=== PATIENT | female | born 1945 | race Caucasian/White ===

== ENCOUNTER 2016-11-22 19:54 | Emergency (ER) | payer MEDICARE, BC ==
[2016-11-22 20:03] VITALS: BP 122/78
[2016-11-22] MEDS ORDERED: Mupirocin 2% OINT* TUBE TOPICAL ONE (20:13)
--- NOTE | 2016-11-22 20:30 | UC ---
Abhay Ortez Benjamin, scribed for Miguel Mckenna MD on 11/22/16 at 2020 . Hand/Wrist HPI - HPI Summary HPI Summary: 71yo female presents with left 3rd and 4th finger injury from burning and pulling off some of her skin off while trying to catch a dog leash this morning. Pt reports throbbing pain in the 3rd and 4th fingers, with fluid filled blisters, and swelling. Fingers hurt to move but pt denies any freddie injury. ROM of the fingers is still intact. Last tetanus shot unknown. - History Of Current Complaint Chief Complaint: UCUpperExtremity Stated Complaint: INJURY TO 2 FINGERS Time Seen by Provider: 11/22/16 20:05 Hx Obtained From: Patient Onset/Duration: Sudden Onset, Lasting Hours, Still Present Severity Initially: Moderate Severity Currently: Severe Pain Scale Used: 0-10 Numeric Character Of Pain: Throbbing Aggravating Factor(s): Movement Alleviating: Rest, Ice, Compression Associated Signs And Symptoms: Positive: Swelling - Allergies/Home Medications Allergies/Adverse Reactions: Allergies Allergy/AdvReac Type Severity Reaction Status Date / Time No Known Allergies Allergy Verified 11/22/16 20:03 Home Medications: Home Medications Levothyroxine TAB* [Synthroid TAB*] 1 tab PO DAILY 11/22/16 [History Confirmed 11/22/16] PMH/Surg Hx/FS Hx/Imm Hx Endocrine History: Other - thyroid disease Other Endocrine History: . - Surgical History Surgical History: Yes Surgery Procedure, Year, and Place: left shoulder, cyst - Family History Known Family History: Negative: Cardiac Disease, Hypertension - Social History Occupation: Employed Full-time Lives: With Family Alcohol Use: Occasionally Substance Use Type: None Smoking Status (MU): Never Smoked Tobacco - Immunization History Most Recent Tetanus Shot: unknown Review of Systems Constitutional: Negative Skin: Other - Blisters on 3rd and 4th fingers of the left hand Eyes: Negative ENT: Negative Respiratory: Negative Cardiovascular: Negative Gastrointestinal: Negative Genitourinary: Negative Motor: Negative Neurovascular: Negative Musculoskeletal: Negative Neurological: Negative Psychological: Negative All Other Systems Reviewed And Are Negative: Yes Physical Exam Triage Information Reviewed: Yes Appearance: Well-Appearing, No Pain Distress, Well-Nourished Vital Signs: Initial Vital Signs Temp 98.7 F 11/22/16 19:58 Pulse 61 11/22/16 19:58 Resp 18 11/22/16 19:58 BP 122/78 11/22/16 19:58 Pulse Ox 99 11/22/16 19:58 Vital Signs Reviewed: Yes Eyes: Positive: Conjunctiva Clear ENT: Positive: Normal ENT inspection, Hearing grossly normal Neck: Positive: Supple, Nontender Respiratory: Positive: Lungs clear, Normal breath sounds, No respiratory distress Cardiovascular: Positive: RRR, No Murmur, Pulses Normal, Brisk Capillary Refill Abdomen Description: Positive: Nontender, Soft Musculoskeletal: Positive: Strength Intact, ROM Intact, Other: - Broken 2x2cm blister at left 3rd proximal phalange, 1x1cm blister at left 3rd middle phalange , 0.5x0.5cm blister at left 4th proximal phalange, and 1x0.5cm blister atleft middle phalange, all at the palmar surface. Clear fluid from the blister, no pus. Full ROM intact. Neurological: Positive: Alert, Muscle Tone Normal Psychological: Positive: Age Appropriate Behavior Skin: Positive: Other - Broken 2x2cm blister at left 3rd proximal phalange, 1x1cm blister at left 3rd middle phalange, 0.5x0.5cm blister at left 4th proximal phalange, and 1x0.5cm blister atleft middle phalange all at the palmar surface. Clear fluid from the blister, no pus. Full ROM intact.. Negative: rashes Hand/Wrist Course/Dx - Course Course Of Treatment: Reviewed pts medication and allergy lists. Blood pressure noted. - Differential Dx/Diagnosis Provider Diagnoses: BLISTERS ON LEFT 3RD/4TH FINGERS AND SPRAIN OF LEFT 3RD/4TH FINGERS. Discharge - Discharge Plan Condition: Stable Disposition: HOME Patient Education Materials: Finger Sprain (ED), Blister (ED) Referrals: Giselle Goldstein MD [Primary Care Provider] - Additional Instructions: FOLLOW UP WITH YOUR DOCTOR. GET RECHECKED FOR ANY WORSENING OF YOUR CONDITION; SIGNS OF INFECTION OR QUESTIONS OR CONCERNS. The documentation as recorded by the Abhay nicole Benjamin accurately reflects the service I personally performed and the decisions made by me, Miguel Mckenna MD.
== END 2016-11-22 20:30 | disposition home or self-care (01) ==
LOC: UCEAST 19:54
DX: S60.423A Blister (nonthermal) of left middle finger, initial encounter (principal); S60.425A Blister (nonthermal) of left ring finger, initial encounter; S63.613A Unspecified sprain of left middle finger, initial encounter; S63.615A Unspecified sprain of left ring finger, initial encounter; X58.XXXA Exposure to other specified factors, initial encounter; Y93.9 Activity, unspecified; Y92.9 Unspecified place or not applicable; E07.9 Disorder of thyroid, unspecified
CPT/HCPCS: 99202; G0463

== ENCOUNTER 2018-07-10 10:47 | Emergency (ER) | payer MEDICARE, BC ==
[2018-07-10 11:01] VITALS: BP 129/56
--- NOTE | 2018-07-10 11:24 | UC ---
Hand/Wrist HPI - HPI Summary HPI Summary: 72 y/o female presents to the urgent care c/o RT index finger laceration s/p injury w/ a door yesterday afternoon. Pt reports her dog slammed the door and her index finger was caught in when the door closed. She irrigated laceration w / a lot of water. This morning when she woke up bleeding was active . She had to applied a lot of pressure to stop the bleeding. She doesn't take any ASA or blood thinner. She can move finger w/o any problem. Pain at touch is 5/10 associated w/ mild bruising and swelling. Pt can't recall when was the last tetanus vaccine. Pt denies numbness or tingling sensation over the RT index finger of RT hand, fever, SOB, chest pain, abdominal pain, N/V/D. - History Of Current Complaint Chief Complaint: UCUpperExtremity Stated Complaint: RT INDEX FINGER INJURY Time Seen by Provider: 07/10/18 11:10 Hx Obtained From: Patient ?: No - Menopausal Onset/Duration: Sudden Onset, Lasting Hours - 14 hrs, Still Present Severity Initially: Moderate Severity Currently: Mild Pain Intensity: 2 Pain Scale Used: 0-10 Numeric Character Of Pain: Sharp Aggravating Factor(s): Movement, Flexion, Pulling Alleviating Factor(s): Rest, Ice Associated Signs And Symptoms: Positive: Swelling, Redness, Bruising. Negative : Numbness/Tingling Related History: Dominant Hand Right - Allergies/Home Medications Allergies/Adverse Reactions: Allergies Allergy/AdvReac Type Severity Reaction Status Date / Time No Known Allergies Allergy Verified 07/10/18 11:00 PMH/Surg Hx/FS Hx/Imm Hx Previously Healthy: Yes Endocrine History: Hypothyroidism - Surgical History Surgical History: Yes Surgery Procedure, Year, and Place: left shoulder, cyst - Family History Known Family History: Positive: None - Pt denies FMHX Negative: Cardiac Disease, Hypertension - Social History Occupation: Retired Lives: With Family Alcohol Use: Occasionally Substance Use Type: None Smoking Status (MU): Never Smoked Tobacco - Immunization History Most Recent Tetanus Shot: unknown Review of Systems All Other Systems Reviewed And Are Negative: Yes Constitutional: Positive: Negative Skin: Positive: Bruising - RT index finger laceration w/ a door Eyes: Positive: Negative ENT: Positive: Negative Respiratory: Positive: Negative Cardiovascular: Positive: Negative Gastrointestinal: Positive: Negative Genitourinary: Positive: Negative Motor: Positive: Negative Neurovascular: Positive: Negative Musculoskeletal: Positive: Decreased ROM - RT index finger, Other: - RT index finger pain s/p injury w/ a door Neurological: Positive: Negative Psychological: Positive: Negative Is Patient Immunocompromised?: No Physical Exam - Summary Physical Exam Summary: Vital Signs Reviewed: Yes General: well developed, well nourished female sitting in the examining table w/ o any apparent distress Eye Exam: Normal Eyes: Positive: Conjunctiva Clear - PERRLA, EOMI, fundi grossly normal ENT: Positive: Normal ENT inspection, Hearing grossly normal, Pharynx normal, TMs normal Neck: Positive: Supple, Nontender, No Lymphadenopathy Respiratory: Positive: Chest non-tender, Lungs clear, Normal breath sounds, No respiratory distress Cardiovascular: Positive: RRR, No Murmur, Pulses Normal, Brisk Capillary Refill Abdomen Description: Positive: Nontender, No Organomegaly, Soft. Negative: CVA Tenderness (R), CVA Tenderness (L) Bowel Sounds: Positive: Present Musculoskeletal: Positive: Strength Intact, ROM Intact, No Edema Neurological: Positive: Alert, Muscle Tone Normal Psychological Exam: Normal Skin: Positive:Dorsal side of the RT index with a semilunar superficial laceration about 1.5cm in size, mild bleeding, no foreign body observed. mild tenderness to palpation, mild ecchymosis around finger. FROM of RT index finger and hand, sensation intact, capillary refill brisk, and pulses WNL. Triage Information Reviewed: Yes Vital Signs: Initial Vital Signs Temp 97.4 F 07/10/18 10:55 Pulse 59 07/10/18 10:55 Resp 18 07/10/18 10:55 BP 129/56 07/10/18 10:55 Pulse Ox 99 07/10/18 10:55 Procedures - Laceration/Wound Repair 1 Location: upper extremity - RT index finger Description: Linear - semilunar Anesthesia: 1.0% - digital block Length, Depth and Shape: 1.5cm in size Betadine Prep?: Yes Laceration/Wound Explored: clean, no foreign body removed Closure: Single Layer Suture Type: Nylon - 5.0 Number of Sutures: 6 Layer Closure?: Yes Sterile Dressing Applied?: Yes Hand/Wrist Course/Dx - Course Course Of Treatment: 72 y/o female presents to the urgent care c/o RT index finger laceration s/p injury w/ a door yesterday afternoon. Pt reports her dog slammed the door and her index finger was caught in when the door closed. She irrigated laceration w / a lot of water. This morning when she woke up bleeding was active . She had to applied a lot of pressure to stop the bleeding. She doesn't take any ASA or blood thinner. She can move finger w/o any problem. Pain at touch is 5/10 associated w/ mild bruising and swelling. Pt can't recall when was the last tetanus vaccine. Pt denies numbness or tingling sensation over the RT index finger of RT hand, fever, SOB, chest pain, abdominal pain, N/V/D. Hx obtained. Pt w/ Dorsal side of the RT index with a semilunar superficial laceration about 1.5cm in size, mild bleeding, no foreign body observed. mild tenderness to palpation, mild ecchymosis around finger. FROM of RT index finger and hand, RT index finger X-ray ordered, Impression: Soft tissue swelling greatest over the radial and dorsal aspects. No conspicuous foreign body evident. Negative for fracture or malalignment. 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 LACERATION PROCEDURE NOTE: . Copious irrigation was done with saline by the nurse and the wound explored. There was no FB or deep structure injury noted. FROM of left forearm. procedure was explained and consent obtained, Timeout performed. The wound was anesthetized with 2 mL of 1 % lido with good anesthesia by digital block. Sterile drape and prep were done. There were 6 sutures with 5.0 nylon type of suture. The length of the wound after closure was 1.5cm. No debridement done. Pt tolerated the procedure well without adverse effects. Neurovascular intact and FROM of Rt index finger. Tdap ordered and applied by nurse. Pt advised to f/u suture removal in 10-12 days and if any signs of infection develop to immediately return to the urgent care of PCP for further management and treatment. Pt understood and agreed and left the clinic ambulating A&Ox3. - Differential Dx/Diagnosis Differential Diagnosis/HQI/PQRI: Abrasion, Cellulitis, Contusion, Fracture, Infection, Puncture Wound, Sprain, Strain, Tendonitis, Tenosynovitis, Other - laceration Provider Diagnosis: Laceration of right index finger Discharge - Sign-Out/Discharge Documenting (check all that apply): Patient Departure - D/C home All imaging exams completed and their final reports reviewed: Yes - Discharge Plan Condition: Stable Disposition: HOME Patient Education Materials: Care For Your Stitches (ED), Laceration (ED) Referrals: Giselle Goldstein MD [Primary Care Provider] - 2 Weeks Additional Instructions: 1-Please apply topical antibiotic over the wound. Keep wound clean and dry 2- F/u suture removal in 10-12 days w/ your PCP or here at the urgent care. 3-Take Ibuprofen or Tylenol PO q6-8hrs prn for pain or swelling. 4- If you develop fever or redness around your finger despite apply triple antibiotic please return to the Urgent care for further evaluation and treatment - Billing Disposition and Condition Condition: STABLE Disposition: Home
[2018-07-10] MEDS ORDERED: Lidocaine 1%* 5 ML VIAL INJ ONE (11:34)
[2018-07-10] MEDS ORDERED: Tetan/Diph/Pertus SYR(Tdap)* 0.5 ML SYR(BOOSTRIX) use SYR IM ONE (11:35)
== END 2018-07-10 12:48 | disposition home or self-care (01) ==
LOC: UCEAST 10:47
DX: S61.210A Laceration without foreign body of right index finger without damage to nail, initial encounter (principal); W23.0XXA Caught, crushed, jammed, or pinched between moving objects, initial encounter; M18.9 Osteoarthritis of first carpometacarpal joint, unspecified; E03.9 Hypothyroidism, unspecified
CPT/HCPCS: 73140; 90471; 90715; 99211; G0463

== ENCOUNTER 2018-07-21 12:19 | Emergency (ER) | payer BC, MEDICARE ==
[2018-07-21 12:43] VITALS: BP 111/60
--- NOTE | 2018-07-21 13:03 | UC ---
HPI Wound/Suture Re-check - HPI Summary HPI Summary: 72 y/o female presents to the urgent care for suture removal from RT index finger laceration repair done on 07/10/2018 here at the clinic. 6 sutures were placed. - History Of Current Complaint Chief Complaint: UCLaceration Stated Complaint: SUTURE REMOVAL Time Seen by Provider: 07/21/18 13:01 Hx Obtained From: Patient Pain Intensity: 0 - Allergies/Home Medications Allergies/Adverse Reactions: Allergies Allergy/AdvReac Type Severity Reaction Status Date / Time No Known Allergies Allergy Verified 07/10/18 11:00 PMH/Surg Hx/FS Hx/Imm Hx - Surgical History Surgical History: Yes Surgery Procedure, Year, and Place: left shoulder, cyst - Family History Known Family History: Positive: None - Pt denies FMHX Negative: Cardiac Disease, Hypertension - Social History Alcohol Use: Occasionally Substance Use Type: None Smoking Status (MU): Never Smoked Tobacco - Immunization History Most Recent Tetanus Shot: unknown Physical Exam Vital Signs: Initial Vital Signs Temp 98.5 F 07/21/18 12:41 Pulse 60 07/21/18 12:41 Resp 17 07/21/18 12:41 BP 111/60 07/21/18 12:41 Pulse Ox 99 07/21/18 12:41 Course/Dx - Differential Dx - Laceration/Wound Differential Diagnoses: Cellulitis, Dehiscence, Healing Wound, Suture Removal - Diagnosis Provider Diagnosis: Visit for suture removal Discharge - Sign-Out/Discharge Documenting (check all that apply): Patient Departure - d/c home All imaging exams completed and their final reports reviewed: No Studies - Discharge Plan Condition: Stable Disposition: HOME Patient Education Materials: Acute Wound Care (ED) Referrals: Giselle Goldstein MD [Primary Care Provider] - If Needed Additional Instructions: 1-Please continue applying topical antibiotic over the wound for 2-3 days. Keep wound clean and dry 3- If you develop fever or redness return to the Urgent care or f/u w/ your PCP for further management. - Billing Disposition and Condition Condition: STABLE Disposition: Home
== END 2018-07-21 13:17 | disposition home or self-care (01) ==
LOC: UCEAST 12:19
DX: S61.210D Laceration without foreign body of right index finger without damage to nail, subsequent encounter (principal); W45.8XXD Other foreign body or object entering through skin, subsequent encounter

== ENCOUNTER 2018-08-11 20:33 | Emergency (ER) | payer BC, MEDICARE ==
[2018-08-11 20:47] VITALS: BP 124/63
--- NOTE | 2018-08-11 20:52 | UC ---
Hand/Wrist HPI - HPI Summary HPI Summary: 72 year old female with no PMH presents after jamming L 4th finger while playing with dog, unsure if jammed on ball, dog, or ground. Pain with flexion of Left 4th finger, + swelling, redness. No pain at rest, no prior injuries. No blood thinners, no open wounds, sensation intact. occurred at 3:30pm - History Of Current Complaint Chief Complaint: UCUpperExtremity Stated Complaint: FINGER INJURY Time Seen by Provider: 08/11/18 20:48 Hx Obtained From: Patient, Family/[employer] - Hx Last Menstrual Period: post ?: No Onset/Duration: Sudden Onset, Lasting Hours, Still Present Severity Initially: Moderate Severity Currently: Moderate Pain Intensity: 4 Pain Scale Used: 0-10 Numeric Character Of Pain: Sharp - with movement, Aching Aggravating Factor(s): Flexion, Extension Alleviating Factor(s): Rest Associated Signs And Symptoms: Positive: Swelling, Redness - Allergies/Home Medications Allergies/Adverse Reactions: Allergies Allergy/AdvReac Type Severity Reaction Status Date / Time No Known Allergies Allergy Verified 08/11/18 20:47 PMH/Surg Hx/FS Hx/Imm Hx Previously Healthy: Yes - Surgical History Surgical History: Yes Surgery Procedure, Year, and Place: left shoulder, cyst - Family History Known Family History: Positive: None - Pt denies FMHX Negative: Cardiac Disease, Hypertension - Social History Alcohol Use: Occasionally Substance Use Type: None Smoking Status (MU): Never Smoked Tobacco - Immunization History Most Recent Tetanus Shot: unknown Review of Systems All Other Systems Reviewed And Are Negative: Yes Constitutional: Positive: Negative Skin: Positive: Bruising Motor: Positive: Decreased ROM Musculoskeletal: Positive: Arthralgia, Edema, Myalgia Is Patient Immunocompromised?: No Physical Exam Triage Information Reviewed: Yes Appearance: Well-Appearing, No Pain Distress, Well-Nourished Vital Signs: Initial Vital Signs Temp 98.4 F 08/11/18 20:40 Pulse 68 08/11/18 20:40 Resp 16 08/11/18 20:40 BP 124/63 08/11/18 20:40 Pulse Ox 97 08/11/18 20:40 Vital Signs Reviewed: Yes Eyes: Positive: Conjunctiva Clear Musculoskeletal: Positive: Strength Limited @ - unable to extend L 4th DIP against resistence, PROM full. full ROM, strength of all other fingers, wrist. radial/ ulnar pulses 2+ car refill < 2secs. SITLT Neurological: Positive: Alert Psychological Exam: Normal Skin: Positive: Rashes Hand/Wrist Course/Dx - Course Course Of Treatment: radiograph- negative fr fracture, finger splinted, continue to wear splint throughout the weekend, follow up with Dr. Gonzales/ brando within 2-3 days if no improvement. Ice, rest. - Differential Dx/Diagnosis Differential Diagnosis/HQI/PQRI: Contusion, Tendonitis, Tenosynovitis Provider Diagnosis: Finger injury Discharge - Sign-Out/Discharge Documenting (check all that apply): Patient Departure All imaging exams completed and their final reports reviewed: Yes - Discharge Plan Condition: Good Disposition: HOME Patient Education Materials: Finger Sprain (ED) Referrals: Marcello Piper MD [Medical Doctor] - Giselle Goldstein MD [Primary Care Provider] - Additional Instructions: - Splint for 2-3 days, may remove for showering. - Motrin/Tylenol as needed for pain - Follow up with Orthopedics within 3-5 days if no improvement - Final X-ray read done tomorrow - Billing Disposition and Condition Condition: GOOD Disposition: Home - Attestation Statements Provider Attestation: Patient not seen by me. I was available for consult.
== END 2018-08-11 21:27 | disposition home or self-care (01) ==
LOC: UCEAST 20:33
DX: S69.92XA Unspecified injury of left wrist, hand and finger(s), initial encounter (principal); X58.XXXA Exposure to other specified factors, initial encounter
CPT/HCPCS: 73140; 99212; G0463

== ENCOUNTER 2020-05-10 20:41 | Inpatient (IN) ==
[2020-05-10 21:33] LABS: ABS Eosinophils 0.1 10^3/ul (0-0.6); ABS Monocytes 0.6 10^3/ul (0-0.8); ABS Neutrophils 3.9 10^3/ul (1.5-7.7); Eosinophil % 1.7 %; Hematocrit 42 % (35-47); Hemoglobin 13.9 g/dL (12.0-16.0); Lymphocyte % 30.7 %; Mean Corpuscular HGB Conc 33 g/dL (31-36); Mean Corpuscular Hemoglobin 30 pg (27-31); Mean Corpuscular Volume 90 fL (80-97); Nucleated Red Blood Cells % 0.1; Platelet Count 254 10^3/uL (150-450); Red Blood Count 4.68 10^6 /uL (3.70-4.87); Red Cell Distribution Width 13 % (10-15); White Blood Count 6.7 10^3/uL (3.5-10.8)
[2020-05-10 21:41] LABS: INR 0.97 (0.82-1.09)
[2020-05-10 21:43] LABS: ALT 16 U/L (7-52); AST 20 U/L (13-39); Albumin 4.5 g/dL (3.2-5.2); Albumin/Globulin Ratio 1.5 (1-3); Alkaline Phosphatase 71 U/L (34-104); Anion Gap 5 mmol/L (2-11); BUN/Creatinine Ratio 32.1 (8-20); Blood Urea Nitrogen 26 mg/dL (6-24); CO2 Carbon Dioxide 31 mmol/L (22-32); Calcium 9.6 mg/dL (8.6-10.3); Chloride 103 mmol/L (101-111); EGFR African American 84.1 (>60); EGFR Non-African American 69.5 (>60); Globulin 3.1 g/dL (2-4); Glucose 111 mg/dL (70-100); Potassium 4.1 mmol/L (3.5-5.0); Sodium 139 mmol/L (135-145); Total Protein 7.6 g/dL (6.4-8.9)
[2020-05-10 21:47] LABS: Troponin I 0.04 ng/mL (<0.03)
[2020-05-10] MEDS ORDERED: Ondansetron 4 mg VIAL 2 MG/ML 2 ml VIAL IV PRN (23:20)
[2020-05-11 00:15] LABS: Magnesium 2.3 mg/dL (1.9-2.7)
[2020-05-11 00:21] LABS: TSH Ultra Thyroid Stim Horm 2.75 mcIU/mL (0.34-5.60)
[2020-05-11 01:24] LABS: Troponin I 0.16 ng/mL (<0.03)
[2020-05-11] MEDS ORDERED: Heparin DRIP 25,000 UNITS BAG 25,000 UNITS/500 ML BAG IV SCH (02:45)
[2020-05-11] MEDS ORDERED: Heparin 5000 UNITS/ML 1 mL VIAL IV SCH (03:00)
[2020-05-11 05:18] LABS: ABS Basophils 0.1 10^3/ul (0-0.2); ABS Eosinophils 0.1 10^3/ul (0-0.6); ABS Lymphocytes 2.1 10^3/ul (1.0-4.8); ABS Monocytes 0.6 10^3/ul (0-0.8); ABS Neutrophils 3.2 10^3/ul (1.5-7.7); Eosinophil % 2.4 %; Hematocrit 40 % (35-47); Hemoglobin 13.3 g/dL (12.0-16.0); Lymphocyte % 34.5 %; Mean Corpuscular HGB Conc 34 g/dL (31-36); Mean Corpuscular Hemoglobin 30 pg (27-31); Mean Corpuscular Volume 89 fL (80-97); Mean Platelet Volume 7.8 fL (7.4-10.4); Platelet Count 246 10^3/uL (150-450); Red Blood Count 4.45 10^6 /uL (3.70-4.87); Red Cell Distribution Width 13 % (10-15); White Blood Count 6.1 10^3/uL (3.5-10.8)
[2020-05-11 05:35] LABS: Blood Urea Nitrogen 21 mg/dL (6-24); Cholesterol 224 mg/dL; EGFR African American 99.5 (>60); EGFR Non-African American 82.3 (>60); HDL Cholesterol 57.6 mg/dL; LDL Cholesterol 158 mg/dL; Triglycerides 42 mg/dL
[2020-05-11] MEDS ORDERED: Heparin 5000 UNITS/ML 1 mL VIAL SUBCUT SCH (06:00)
[2020-05-11 06:12] LABS: Troponin I 0.14 ng/mL (<0.03)
[2020-05-12 06:20] LABS: ABS Eosinophils 0.1 10^3/ul (0-0.6); ABS Lymphocytes 1.9 10^3/ul (1.0-4.8); ABS Monocytes 0.5 10^3/ul (0-0.8); ABS Neutrophils 2.6 10^3/ul (1.5-7.7); Eosinophil % 2.3 %; Hematocrit 42 % (35-47); Hemoglobin 14.1 g/dL (12.0-16.0); Lymphocyte % 36.8 %; Mean Corpuscular HGB Conc 34 g/dL (31-36); Mean Corpuscular Hemoglobin 30 pg (27-31); Mean Corpuscular Volume 89 fL (80-97); Mean Platelet Volume 7.8 fL (7.4-10.4); Platelet Count 241 10^3/uL (150-450); Red Blood Count 4.74 10^6 /uL (3.70-4.87); Red Cell Distribution Width 13 % (10-15); White Blood Count 5.2 10^3/uL (3.5-10.8)
[2020-05-12] MEDS ORDERED: NS 0.9% 1000 ml BAG 1,000 ML IV SCH ×2 (08:45→12:00)
[2020-05-12] MEDS ORDERED: fentaNYL 100 mcg/2 ml 50 MCG/ML VIAL ONE (08:58)
[2020-05-12] MEDS ORDERED: Midazolam 5 mg/5 ml VIAL 1 mg/ml 5 ml VIAL (5 mg) ONE (08:58)
[2020-05-12] MEDS ORDERED: Lidocaine 1% VIAL 10 MG/ML VIAL ONE (08:59)
[2020-05-12] MEDS ORDERED: Heparin 2 UNITS/ML 1000 mls 2,000 ML IV ONE (08:59)
[2020-05-12] MEDS ORDERED: Iohexol 350 (CONTRAST) 200 ML MDV IV ONE (08:59)
[2020-05-12] MEDS ORDERED: Heparin 1,000 UNIT/ML 10 ml (10,000 UNITS) CATHLAB/DIALYSIS ONE (08:59)
[2020-05-12] MEDS ORDERED: nitroGLYCERIN DRIP 25,000 MCG/250 ML BTL ONE (08:59)
[2020-05-12] MEDS ORDERED: VERAPAMIL 2.5 MG/ML 2 ML VIAL ** 5 mg/2 ml ONE (08:59)
[2020-05-12] MEDS ORDERED: diPHENhydraMINE 25 mg TAB PO PRN (09:00)
[2020-05-12 13:13] VITALS: BP 123/57
== END 2020-05-12 14:00 | disposition short-term general hospital (02) | DRG 287 ==
LOC: ED 20:41 → EDHOLD 20:41 → MEDTELE 05-11 02:47
PROVIDERS: ADMIT Internal Medicine Interventional Cardiology; ATTEND Internal Medicine

== ENCOUNTER 2020-06-23 03:22 | Observation (INO) ==
[2020-06-23 03:57] LABS: ABS Eosinophils 0.1 10^3/ul (0-0.6); ABS Lymphocytes 1.6 10^3/ul (1.0-4.8); ABS Monocytes 0.6 10^3/ul (0-0.8); ABS Neutrophils 3.8 10^3/ul (1.5-7.7); Eosinophil % 2.1 %; Hematocrit 37 % (35-47); Hemoglobin 12.4 g/dL (12.0-16.0); Lymphocyte % 25.9 %; Mean Corpuscular HGB Conc 34 g/dL (31-36); Mean Corpuscular Hemoglobin 30 pg (27-31); Mean Corpuscular Volume 88 fL (80-97); Mean Platelet Volume 8.4 fL (7.4-10.4); Platelet Count 223 10^3/uL (150-450); Red Blood Count 4.15 10^6 /uL (3.70-4.87); Red Cell Distribution Width 13 % (10-15); White Blood Count 6.2 10^3/uL (3.5-10.8)
[2020-06-23 04:07] LABS: INR 0.97 (0.82-1.09)
[2020-06-23 04:16] LABS: Albumin 3.8 g/dL (3.2-5.2); Albumin/Globulin Ratio 1.3 (1-3); BUN/Creatinine Ratio 40.3 (8-20); Calcium 8.8 mg/dL (8.6-10.3); EGFR African American 104.7 (>60); EGFR Non-African American 86.5 (>60); Globulin 2.9 g/dL (2-4); Total Bilirubin 0.4 mg/dL (0.2-1.0); Total Protein 6.7 g/dL (6.4-8.9)
[2020-06-23 04:40] LABS: Potassium 4.7 mmol/L (3.5-5.0)
[2020-06-23] MEDS ORDERED: Regadenoson 0.4 MG/5 ML SYRINGE ONE (12:28)
[2020-06-23] MEDS ORDERED: Perflutren Lipid Microsphere 3 ML VIAL ONE (15:10)
[2020-06-23 16:17] VITALS: BP 132/60
== END 2020-06-23 18:50 | disposition home or self-care (01) ==
LOC: ED 03:22 → MEDTELE 03:22
PROVIDERS: ADMIT Internal Medicine; ATTEND Internal Medicine